=== PATIENT | male | born 1955 | race African-American/Black ===

== ENCOUNTER 2022-04-28 15:26 | Emergency (ER) | payer MEDICARE, MEDICAID ==
[~2022-04-28] VITALS: Ht 167.6 cm; Wt 64.0 kg
[~2022-04-28 15:26] MED LIST: FURO-152 MT
[2022-04-28 15:29] VITALS: BP 132/70
[2022-04-28 17:26] LABS: BASOPHILS % 0.5 % (0.0-2.0); EOSINOPHILS % 0.4 % (0.0-5.0); HEMATOCRIT. 40.2 % (42.0-52.0); HEMOGLOBIN. 13.4 g/dL (14.0-18.0); LYMPHOCYTES % 11.2 % (20.0-50.0); MEAN CORPUSCULAR VOLUME 93.4 fL (80.0-94.0); MONOCYTES % 12.5 % (2.0-8.0); NEUTROPHILS % 75.4 % (40.0-76.0); PLATELET 393 x1000/uL (130-400); RED BLOOD CELL COUNT 4.31 mill/uL (4.7-6.1); RED CELL DISTRIBUTION WIDTH 14.4 % (11.6-14.6)
[2022-04-28 17:38] LABS: CHLORIDE 98 mEq/L (98-107)
[2022-04-28 17:55] LABS: ETHANOL BLOOD < 10 mg/dL
== END 2022-04-28 17:30 | disposition left against medical advice (07) ==
LOC: ER 15:26
DX: I11.0 Hypertensive heart disease with heart failure (principal); I50.9 Heart failure, unspecified; F17.200 Nicotine dependence, unspecified, uncomplicated; E78.00 Pure hypercholesterolemia, unspecified; Z13.9 Encounter for screening, unspecified
CPT/HCPCS: 36415; 80053; 80320; 83880; 84484; 85025; 93005; 99285; G0480

== ENCOUNTER 2022-04-28 19:38 | Emergency (ER) | payer MEDICARE, MEDICAID ==
[~2022-04-28] VITALS: Ht 182.9 cm; Wt 90.0 kg
[2022-04-28 20:15] VITALS: BP 95/50
== END 2022-04-28 23:00 | disposition left against medical advice (07) ==
LOC: ER 19:38 → CANBEDREQ 04-29 09:34
DX: I11.0 Hypertensive heart disease with heart failure (principal); I50.9 Heart failure, unspecified; E78.00 Pure hypercholesterolemia, unspecified; Z88.2 Allergy status to sulfonamides
CPT/HCPCS: 99281